=== PATIENT | male | born 1980 | race Caucasian/White ===

== ENCOUNTER 2017-07-29 02:52 | Emergency (ER) | payer OTHER ==
[~2017-07-29] VITALS: Ht 177.8 cm; Wt 90.9 kg
[2017-07-29] MEDS ORDERED: LIDOCAINE HCL 1% 10 ML VIAL INJ ONE (06:30)
[2017-07-29] MEDS ORDERED: PERTUSS(ACELL),DIPH,TET VAC/PF 0.5 ML VIAL IM ONE (06:30)
[2017-07-29] MEDS ORDERED: SODIUM CHLORIDE 0.9% 250 ML IRRIG SOLUTION BOTTLE IRRIG ONE (06:30)
[2017-07-29 07:56] VITALS: BP 135/78
== END 2017-07-29 07:59 | disposition home or self-care (01) ==
LOC: EMS 02:54
DX: S01.112A Laceration without foreign body of left eyelid and periocular area, initial encounter (principal); W01.198A Fall on same level from slipping, tripping and stumbling with subsequent striking against other object, initial encounter; Y92.511 Restaurant or cafe as the place of occurrence of the external cause; Y93.89 Activity, other specified; Y99.8 Other external cause status
CPT/HCPCS: 12013; 90471; 90715; 99283; J3490